=== PATIENT | male | born 1960 | race Caucasian/White ===

== ENCOUNTER 2021-02-04 10:13 | Emergency (ER) | payer OTHER ==
[~2021-02-04] VITALS: Ht 182.9 cm; Wt 99.8 kg
[2021-02-04] MEDS ORDERED: IBUPROFEN200 M1 PO (10:29)
== END 2021-02-04 11:48 | disposition home or self-care (01) ==
LOC: ED 10:13
DX: M54.9 Dorsalgia, unspecified (principal); I25.2 Old myocardial infarction; F17.200 Nicotine dependence, unspecified, uncomplicated; Z88.0 Allergy status to penicillin
CPT/HCPCS: 73060; 99283-25

== ENCOUNTER 2022-02-05 14:10 | Emergency (ER) | payer OTHER ==
[~2022-02-05] VITALS: Ht 182.9 cm; Wt 102.1 kg
[~2022-02-05 14:10] MED LIST: IBUPROFEN200 M1 PO
[2022-02-05] MEDS ORDERED: HYDROCODON-ACE1 EA11 PO (17:01)
== END 2022-02-05 17:40 | disposition home or self-care (01) ==
LOC: ED 14:10
DX: M25.461 Effusion, right knee (principal); I25.2 Old myocardial infarction; Z88.0 Allergy status to penicillin; F17.200 Nicotine dependence, unspecified, uncomplicated
CPT/HCPCS: 20610; 99283-25; A9270; J3301